=== PATIENT | male | born 1980 | race Two or more races ===

== ENCOUNTER 2017-12-21 19:12 | Emergency (ER) | payer OTHER ==
[~2017-12-21] VITALS: Ht 195.6 cm; Wt 104.3 kg
[~2017-12-21 19:12] MED LIST: CELEBREX100 MG PO; CRESTOR5 MG; DEPAKOTE ER250 MG; DEPAKOTE ER500 MG; DOLOGEN CAPLET1 EACH PO; EFFEXOR XR75 MG; EFFEXOR25 MG; LAMICTAL25 MG; PHENABID D1 TAB.SR .; SEROQUEL25 MG; SKELAXIN800 MG PO; SYNTHROID112 MCG; SYNTHROID50 MCG; TUSICOF LIQUID120 ML PO; ZITHROMAX1 G/PKT; [UNRECOGNIZED DRUG - OTHER]
== END 2017-12-21 21:33 | disposition home or self-care (01) ==
LOC: ER 19:12
DX: B34.9 Viral infection, unspecified (principal); N39.0 Urinary tract infection, site not specified

== ENCOUNTER 2018-06-18 21:23 | Emergency (ER) | payer OTHER ==
[~2018-06-18] VITALS: Ht 193 cm; Wt 104.3 kg
== END 2018-06-18 22:18 | disposition home or self-care (01) ==
LOC: ER 21:23
DX: M75.51 Bursitis of right shoulder (principal)

== ENCOUNTER 2018-07-17 14:34 | Emergency (ER) | payer OTHER ==
[~2018-07-17] VITALS: Ht 195.6 cm; Wt 104.3 kg
[2018-07-17] MEDS ORDERED: CORTISPORIN EAR10 M1 OT (16:36)
== END 2018-07-17 16:46 | disposition home or self-care (01) ==
LOC: ER 14:34
DX: H60.8X1 Other otitis externa, right ear (principal)

== ENCOUNTER 2018-10-03 12:32 | Emergency (ER) | payer OTHER ==
[~2018-10-03] VITALS: Ht 193 cm; Wt 104.3 kg
[~2018-10-03 12:32] MED LIST changes: +CORTISPORIN EAR10 M1 OT
[2018-10-03] MEDS ORDERED: KETO10TA2 PO (18:09)
[2018-10-03] MEDS ORDERED: ORPHENADRINE C100 MG PO (18:09)
== END 2018-10-03 18:51 | disposition home or self-care (01) ==
LOC: ER 12:32
DX: S93.491A Sprain of other ligament of right ankle, initial encounter (principal); W01.198A Fall on same level from slipping, tripping and stumbling with subsequent striking against other object, initial encounter; Y93.01 Activity, walking, marching and hiking; Y92.89 Other specified places as the place of occurrence of the external cause; Y99.8 Other external cause status

== ENCOUNTER 2019-01-19 19:08 | Emergency (ER) | payer OTHER ==
[~2019-01-19] VITALS: Ht 193 cm; Wt 104.3 kg
[~2019-01-19 19:08] MED LIST changes: +KETO10TA2 PO; +ORPHENADRINE C100 MG PO
[2019-01-19] MEDS ORDERED: SIMVASTATIN20 MG (19:16)
== END 2019-01-19 23:01 | disposition home or self-care (01) ==
LOC: ER 19:08
DX: K52.89 Other specified noninfective gastroenteritis and colitis (principal)